=== PATIENT | male | born 1940 | race Caucasian/White ===

== ENCOUNTER 2022-10-17 19:54 | Inpatient (IN) | payer MEDICARE, MEDICAID ==
[~2022-10-17] VITALS: Ht 182.9 cm; Wt 72.7 kg
[~2022-10-17 19:54] MED LIST: FERR325T29
[2022-10-17 22:22] LABS: HEMOGLOBIN 7.4 g/dl (14.0-17.9); MEAN PLATELET VOLUME 6.1 FL (7.4-10.4)
[2022-10-17 22:23] LABS: HEMATOCRIT 22.9 % (42.0-52.0); MEAN CORPUSCULAR HEMOGLOBIN 27.3 PG (27.0-31.0); MEAN CORPUSCULAR HGB CONC 32.3 g/dL (33.0-36.5); MEAN CORPUSCULAR VOLUME 84.5 FL (78-98); PLATELET COUNT 189 X10'3 (140-440); RED BLOOD COUNT 2.71 X10'6 (4.70-6.10); RED CELL DISTRIBUTION WIDTH 17.4 % (11.5-14.5); WHITE BLOOD COUNT 3.1 X10'3 (4.5-11.0)
[2022-10-17 22:37] LABS: CLARITY,URINE CLOUDY (Clear); COLOR,URINE YELLOW (Yellow); GLUCOSE, URINE NEGATIVE (Neg); KETONES,URINE NEGATIVE (Neg); LEUKOCYTE ESTERASE ,URINE LARGE (Neg); NITRITES, URINE POSITIVE (Neg); OCCULT BLOOD,URINE SMALL (Neg); PROTEIN,URINE TRACE mg/dl (Neg); UROBILINOGEN,URINE 0.2 E.U/dL (0.2-1.0)
[2022-10-17 22:44] LABS: ALANINE AMINOTRANSFERASE 10 U/L (12-78); ALBUMIN 1.1 G/DL (3.4-5.0); ALBUMIN/GLOBULIN RATIO 0.2 (1.1-1.5); ALKALINE PHOSPHATASE 58 IU/L (46-116); ANION GAP 1 (8-16); ASPARTATE AMINO TRANSFERASE 51 U/L (10-37); BILIRUBIN,TOTAL 0.3 MG/DL (0.1-1.0); BLOOD UREA NITROGEN 26 MG/DL (7-18); BUN/CREATININE RATIO 25.5 (5.4-32.0); CHLORIDE 103 MMOL/L (99-107); CREATININE 1.02 MG/DL (0.60-1.10); GLUCOSE 123 MG/DL (70-104); SODIUM 140 MMOL/L (135-145); TOTAL CARBON DIOXIDE 35.6 MMOL/L (24-32); TOTAL PROTEIN 8.3 G/DL (6.4-8.2); eGFR 70 ML/MIN
[2022-10-17 22:46] LABS: UA COLLECTION TYPE FOLEY CATH
[2022-10-17 22:50] LABS: CALCIUM 12.6 MG/DL (8.5-10.1); POTASSIUM 2.9 MMOL/L (3.5-5.1)
[2022-10-17 22:53] LABS: WBC,URINE TNTC /HPF (0-4)
[2022-10-17 22:54] LABS: AMORPHOUS URATES 1+; BACTERIA,URINE 2+ /HPF (Neg); RBC,URINE 50-100 /HPF (0-2)
[2022-10-17 22:57] LABS: SQUAMOUS EPITHELIAL CELL,UR FEW /LPF (FEW); TRANSITIONAL EPI CELLS,URINE MODERATE /HPF; URIC ACID CRYSTALS 4+ /HPF (NEGATIVE)
[2022-10-17 22:58] LABS: WBC CLUMPS,URINE FEW /HPF (NEGATIVE)
[2022-10-17 23:28] LABS: ANISOCYTOSIS 1+; PLATELET ESTIMATE NORMAL; TOTAL CELLS COUNTED 100
[2022-10-17 23:29] LABS: ROULEAUX 1+; SMUDGE CELLS 1+
[2022-10-17] MEDS ORDERED: magnesium 2GM in 50ml NS 50 ML IV ONE (23:50)
[2022-10-17] MEDS ORDERED: CefTRIAXone/D5W-Rocephin 1gm 50 ML IV ONE (23:50)
[2022-10-17] MEDS ORDERED: potassium CL 10mEq/100ml bag 100 ML IV SCH (23:50)
[2022-10-17] MEDS ORDERED: dexamethasone sod phosphate 10mg/ml inj IV STA (23:54)
[2022-10-17] MEDS ORDERED: ringers solution, lacted 1,000 ML IV ONE (23:55)
[2022-10-17] MEDS ORDERED: REMDESIVIR INJ 200 MG in normal saline 100ml IV soln 100 ML IV ONE (23:55)
[2022-10-18] MEDS ORDERED: acetaminophen 1,000mg/100ml IV 100 ML IV ONE
[2022-10-18] MEDS ORDERED: Potassium Cl inj 20 MEQ in normal saline 250ml IV soln 250 ML IV ONE (00:05)
[2022-10-18] MEDS: normal saline 1000ml 1,000 ML IV SCH ×5 (00:22→22:26)
--- NOTE | 2022-10-18 01:15 | NUR ---
linens and brief changed, one sm. bowel movement. pt could not assist in rolling. 3person assist.
[2022-10-18] MEDS ORDERED: mag hydrox/Alum hydrox/simeth 30ml oral suspension PO PRN (01:20)
[2022-10-18] MEDS ORDERED: magnesium hydroxide 30ml (MOM) UD suspension PO PRN (01:20)
[2022-10-18] MEDS ORDERED: magnesium 4gm in 100ml NS 100 ML IV PRN (01:20)
[2022-10-18] MEDS ORDERED: acetaminophen 325mg tablet PO PRN (01:20)
[2022-10-18] MEDS ORDERED: ondansetron/PF 4mg/2ml inj IV PRN (01:20)
[2022-10-18] MEDS ORDERED: magnesium Cl slow-release 64mg tablet PO PRN (01:20)
[2022-10-18] MEDS ORDERED: potassium Cl 40MEQ/1/2NS 520ml 520 ML IV PRN (01:20)
[2022-10-18 02:09] LABS: MAGNESIUM 1.5 MG/DL (1.5-2.4)
[2022-10-18] MEDS ORDERED: pamidronate disodium inj 90 MG in normal saline 500ml IV soln 500 ML IV ONE (02:20)
--- NOTE | 2022-10-18 04:32 | NUR ---
pt asking for water, but does not answer simple questions such as whether he has any pain.
--- NOTE | 2022-10-18 06:44 | NUR ---
Spoke with Dr Lacy to clarify orders for Lasix as pts potassium was 3.0 before replacement with 20 mEq during applications intern and pts last BP was 98/52. stated he wants to continue with the lasix at this time but that this RN should give a 250 cc bolus of NS as the BP is below 100 as well as continue to give NS at 150 mL/hr.
[2022-10-18] MEDS: CefTRIAXone/D5W-Rocephin 1gm 50 ML IV SCH (07:56)
[2022-10-18] MEDS: docusate sod 100mg capsule PO SCH ×2 (07:59→20:05)
[2022-10-18] MEDS ORDERED: furosemide 10 MG/1 ML 10ml inj IV SCH (08:00)
[2022-10-18] MEDS ORDERED: NORMAL SALINE IV SCH (08:00)
[2022-10-18] MEDS ORDERED: DEXAMETHASONE IV SCH (08:00)
[2022-10-18] MEDS: K and/or MAG REPLACEMENT MC SCH ×2 (08:00→20:09)
[2022-10-18] MEDS: heparin, porcine 5000 units/ml vial SQ SCH ×2 (08:01→20:05)
[2022-10-18] MEDS ORDERED: normal saline 500ml IV soln 500 ML IV ONE (08:20)
--- NOTE | 2022-10-18 08:27 | NUR ---
Pt very weak, able to swallow water and PO meds without difficulty. Ate a few bites of oatmeal for breakfast. He understands he is not at home but does not answer when asked where he is. Pt seems alert but exhausted.
--- NOTE | 2022-10-18 08:57 | NUR ---
Received phone call from pt's , provided updates on pt condition.
[2022-10-18 09:05] LABS: ALANINE AMINOTRANSFERASE 13 U/L (12-78); ALBUMIN 1.1 G/DL (3.4-5.0); ALBUMIN/GLOBULIN RATIO 0.2 (1.1-1.5); ALKALINE PHOSPHATASE 53 IU/L (46-116); ANION GAP 0 (8-16); ASPARTATE AMINO TRANSFERASE 54 U/L (10-37); BILIRUBIN,TOTAL 0.2 MG/DL (0.1-1.0); BLOOD UREA NITROGEN 26 MG/DL (7-18); BUN/CREATININE RATIO 24.5 (5.4-32.0); CALCIUM 11.6 MG/DL (8.5-10.1); CHLORIDE 105 MMOL/L (99-107); CREATININE 1.06 MG/DL (0.60-1.10); GLUCOSE 184 MG/DL (70-104); PHOSPHORUS 3.1 MG/DL (2.3-4.5); POTASSIUM 3.2 MMOL/L (3.5-5.1); SODIUM 141 MMOL/L (135-145); TOTAL CARBON DIOXIDE 35.6 MMOL/L (24-32); TOTAL PROTEIN 7.8 G/DL (6.4-8.2); eGFR 67 ML/MIN
[2022-10-18 09:28] LABS: ALANINE AMINOTRANSFERASE 15 U/L (12-78); ALBUMIN 1.1 G/DL (3.4-5.0); ALBUMIN/GLOBULIN RATIO 0.2 (1.1-1.5); ALKALINE PHOSPHATASE 50 IU/L (46-116); ANION GAP 0 (8-16); ASPARTATE AMINO TRANSFERASE 49 U/L (10-37); BILIRUBIN,TOTAL 0.2 MG/DL (0.1-1.0); BLOOD UREA NITROGEN 27 MG/DL (7-18); BUN/CREATININE RATIO 25.5 (5.4-32.0); CALCIUM 11.5 MG/DL (8.5-10.1); CHLORIDE 105 MMOL/L (99-107); CREATININE 1.06 MG/DL (0.60-1.10); GLUCOSE 213 MG/DL (70-104); POTASSIUM 3.2 MMOL/L (3.5-5.1); SODIUM 140 MMOL/L (135-145); TOTAL CARBON DIOXIDE 34.9 MMOL/L (24-32); TOTAL PROTEIN 7.7 G/DL (6.4-8.2); eGFR 67 ML/MIN
--- NOTE | 2022-10-18 10:50 | NUR ---
ED BED 11-Pt has received 40 of Lasix BP 94/44. Currently recieving NS at 150. Would you like a bolus? [id number] page sent to Dr. Carias
--- NOTE | 2022-10-18 10:55 | NUR ---
received orders for 250 cc bolus of NS from Dr. Carias
[2022-10-18] MEDS ORDERED: normal saline 500ml IV soln 500 ML IV STA (10:56)
--- NOTE | 2022-10-18 11:35 | NUR ---
BP 117/53 after 250 cc bolus
[2022-10-18] MEDS: HYDROcodone/acetaminophen 10/325mg tab PO PRN (13:24)
--- NOTE | 2022-10-18 15:06 | NUR ---
pts called for updates. Update provided. Pts upset that she cannot visit due to hospitals COVID visitor policy.
[2022-10-18] MEDS ORDERED: CHOL20004 PO (15:21)
[2022-10-18] MEDS ORDERED: BISA10SU60 RC (15:22)
[2022-10-18] MEDS ORDERED: DOCU100C40 PO (15:22)
[2022-10-18] MEDS ORDERED: NA P133E4 RC (15:23)
[2022-10-18] MEDS ORDERED: LEVO-65 PO (15:24)
[2022-10-18] MEDS ORDERED: LIDO700A32 TOP (15:25)
[2022-10-18] MEDS ORDERED: MULT-227 PO (15:26)
[2022-10-18] MEDS ORDERED: MAGN400O6 PO (15:26)
[2022-10-18] MEDS ORDERED: NIRM1TAB PO (15:27)
[2022-10-18] MEDS ORDERED: POTA-206 PO (15:28)
[2022-10-18] MEDS ORDERED: POLY1DRO2 OP (15:28)
[2022-10-18] MEDS ORDERED: SENN-263 PO (15:29)
[2022-10-18] MEDS ORDERED: TRAM50TA2 PO (15:30)
[2022-10-18] MEDS ORDERED: ACET325T58 PO (15:31)
[2022-10-18] MEDS ORDERED: ASCO500C18 PO (15:31)
[2022-10-18] MEDS ORDERED: ONDA4TAB12 PO (15:32)
--- NOTE | 2022-10-18 15:51 | NUR ---
pt checked for incontinence and repositioned. No bowel movement at this time.
--- NOTE | 2022-10-18 17:30 | NUR ---
SPENT APPROX 20 MINUTES ON THE PHONE WITH PT'S DISCUSSING HER CONCERNS REGARDING PT BEING DC BEFORE SHE IS READY FOR HIM TO COME HOME. WANTS PT TO BE COVID NEG SO THAT SHE CAN HAVE A HOME HEALTH WORKER BEABLE TO COME TO HER HOME FOR ASSISTANCE.
--- NOTE | 2022-10-18 19:23 | NUR ---
Phoned Dr Marie to discuss POC and we reviewed labs, will redraw CMP, ordered placed.
[2022-10-18 19:58] LABS: ALBUMIN 1.1 G/DL (3.4-5.0); ALBUMIN/GLOBULIN RATIO 0.2 (1.1-1.5); ALKALINE PHOSPHATASE 55 IU/L (46-116); ANION GAP 2 (8-16); ASPARTATE AMINO TRANSFERASE 46 U/L (10-37); BILIRUBIN,TOTAL 0.2 MG/DL (0.1-1.0); BLOOD UREA NITROGEN 31 MG/DL (7-18); BUN/CREATININE RATIO 31.3 (5.4-32.0); CALCIUM 11.8 MG/DL (8.5-10.1); CHLORIDE 107 MMOL/L (99-107); CREATININE 0.99 MG/DL (0.60-1.10); GLUCOSE 151 MG/DL (70-104); POTASSIUM 3.1 MMOL/L (3.5-5.1); SODIUM 144 MMOL/L (135-145); TOTAL CARBON DIOXIDE 34.7 MMOL/L (24-32); eGFR 73 ML/MIN
[2022-10-18] MEDS: dexamethasone inj 6 MG in normal saline 50ml IV soln 50 ML IV SCH (20:05)
[2022-10-18] MEDS: furosemide 40mg/4ml inj IV SCH (20:05)
[2022-10-18] MEDS: potassium Cl 20 mEq SR tablet PO PRN (20:08)
[2022-10-18 20:13] LABS: ALANINE AMINOTRANSFERASE 14 U/L (12-78)
--- NOTE | 2022-10-18 21:27 | NUR ---
Patient in room ED 11. I have received report from SHARRI Payne and had the opportunity to ask questions and assume patient care.
[2022-10-18 22:00] VITALS: BP 128/59
[2022-10-19] VITALS (15 sets, daily range): BP systolic 126–179; BP diastolic 63–101
[2022-10-19] MEDS: potassium Cl 20 mEq SR tablet PO PRN ×4 (00:04→16:35)
--- NOTE | 2022-10-19 00:19 | NUR ---
Pt. HR drop to 30-40.Dr. Marie is aware.He came and saw the pt. and gave me a order to hold his Remdesevir.We will continue to care for pt.
[2022-10-19] MEDS: normal saline 1000ml 1,000 ML IV SCH ×2 (05:45→17:20)
--- NOTE | 2022-10-19 06:25 | NUR ---
Problems reprioritized. Patient report given, questions answered & plan of care reviewed with SHARRI Perrin.
[2022-10-19 07:09] LABS: BASOPHILS % (AUTO) 0.1 % (0-1); EOSINOPHILS % (AUTO) 0 % (0-6); LYMPHOCYTES # (AUTO) 0.4 X10'3 (1.1-4.8); LYMPHOCYTES % (AUTO) 10.1 % (21-51); MEAN CORPUSCULAR HEMOGLOBIN 27.5 PG (27.0-31.0); MEAN CORPUSCULAR HGB CONC 32.5 g/dL (33.0-36.5); MEAN CORPUSCULAR VOLUME 84.5 FL (78-98); MEAN PLATELET VOLUME 6.7 FL (7.4-10.4); MONOCYTES # (AUTO) 0.1 X10'3 (0-0.9); MONOCYTES % (AUTO) 2.1 % (2-12); NEUTROPHILS # (AUTO) 3.8 X10'3 (1.8-7.7); NEUTROPHILS % (AUTO) 87.7 % (42-75); PLATELET COUNT 185 X10'3 (140-440); WHITE BLOOD COUNT 4.3 X10'3 (4.5-11.0)
[2022-10-19 07:15] LABS: HEMATOCRIT 19.4 % (42.0-52.0); HEMOGLOBIN 6.3 g/dl (14.0-17.9)
--- NOTE | 2022-10-19 07:17 | NUR ---
Marychuy, surg [id number] Cris Gupta 341... H&H 6.3/19.4, do you want to order blood? Addendum: 10/19/22 at 0718 by Marychuy Jasso RN RN message sent to Dr Carias @ [phone]
[2022-10-19 07:21] LABS: ALANINE AMINOTRANSFERASE 10 U/L (12-78); ALBUMIN 1.1 G/DL (3.4-5.0); ALBUMIN/GLOBULIN RATIO 0.2 (1.1-1.5); ALKALINE PHOSPHATASE 49 IU/L (46-116); ANION GAP 0 (8-16); ASPARTATE AMINO TRANSFERASE 51 U/L (10-37); BILIRUBIN,TOTAL 0.1 MG/DL (0.1-1.0); BLOOD UREA NITROGEN 39 MG/DL (7-18); CALCIUM 10.5 MG/DL (8.5-10.1); CHLORIDE 108 MMOL/L (99-107); GLUCOSE 156 MG/DL (70-104); MAGNESIUM 1.6 MG/DL (1.5-2.4); POTASSIUM 3.4 MMOL/L (3.5-5.1); SODIUM 143 MMOL/L (135-145); TOTAL CARBON DIOXIDE 34.7 MMOL/L (24-32); TOTAL PROTEIN 7.7 G/DL (6.4-8.2); eGFR 72 ML/MIN
[2022-10-19] MEDS: heparin, porcine 5000 units/ml vial SQ SCH ×2 (08:00→20:12)
[2022-10-19] MEDS: K and/or MAG REPLACEMENT MC SCH ×2 (08:00→20:00)
[2022-10-19] MEDS: docusate sod 100mg capsule PO SCH ×2 (08:00→20:13)
[2022-10-19] MEDS: furosemide 40mg/4ml inj IV SCH ×2 (08:00→20:13)
[2022-10-19] MEDS: dexamethasone inj 6 MG in normal saline 50ml IV soln 50 ML IV SCH (08:00)
[2022-10-19] MEDS: CefTRIAXone/D5W-Rocephin 1gm 50 ML IV SCH (08:46)
--- NOTE | 2022-10-19 09:00 | NUR ---
Ria agrees to blood transfusion due to pts Hgb/Hct being 6.3 and 19.4. He is too confused to concent self. 2 RN's signature for wifes decision on consent documented. Dr Carias ordered by phone 2 units of blood with wifes consent.
--- NOTE | 2022-10-19 10:51 | NUR ---
Dr Carias Notified, mrsa in urine culture from reyes PAGER ID: [phone] MESSAGE: Marychuy, surg 2959 Cris Gupta 341 FYI: MRSA in reyes/Urine culture.
--- NOTE | 2022-10-19 11:21 | NUR ---
Per lauro Rosen to hold AM dose of heparin
--- NOTE | 2022-10-19 11:44 | NUR ---
Noted pt with a low Devang of 11. Wound care has been consulted for open area to bilat buttocks. Will make recommendations as appropriate pending wound care assessment and trends in PO intake. Addendum: 10/19/22 at [address] Amended: Links added.
[2022-10-19 15:22] LABS: OCCULT BLOOD STOOL NEGATIVE (Neg)
--- NOTE | 2022-10-19 18:00 | NUR ---
Patient in room [facility] 341. I have received report from SHARRI Perrin and had the opportunity to ask questions and assume patient care.
--- NOTE | 2022-10-19 18:21 | NUR ---
Report given back to Tatiana HARRELL, all questions answered at this time. Pt resting comfortably in bed.
--- NOTE | 2022-10-19 19:00 | NUR ---
Pt. called to check on pt.She requested to be notified of any new medication be given to pt. She did not wanted Decadron and Remdesivir to be given.Hospitalist is notified and gave me a order to discontinue the order,We will continue with pt. care.
[2022-10-20] MEDS: normal saline 1000ml 1,000 ML IV SCH ×4 (00:07→19:28)
[2022-10-20 02:00] VITALS: BP 156/54
--- NOTE | 2022-10-20 06:24 | NUR ---
Problems reprioritized. Patient report given, questions answered & plan of care reviewed with SHARRI Deal.
--- NOTE | 2022-10-20 06:46 | NUR ---
Patient in room [facility] 341. I have received report from Nicole HARRELL and had the opportunity to ask questions and assume patient care.
[2022-10-20 06:47] VITALS: BP 127/96
[2022-10-20 07:09] LABS: BASOPHILS % (AUTO) 0.1 % (0-1); EOSINOPHILS % (AUTO) 0 % (0-6); HEMOGLOBIN 8.6 g/dl (14.0-17.9); LYMPHOCYTES # (AUTO) 0.5 X10'3 (1.1-4.8); LYMPHOCYTES % (AUTO) 9.3 % (21-51); MEAN CORPUSCULAR HEMOGLOBIN 27.4 PG (27.0-31.0); MEAN CORPUSCULAR HGB CONC 32.9 g/dL (33.0-36.5); MEAN CORPUSCULAR VOLUME 83.3 FL (78-98); MEAN PLATELET VOLUME 6.7 FL (7.4-10.4); MONOCYTES # (AUTO) 0.1 X10'3 (0-0.9); MONOCYTES % (AUTO) 2.4 % (2-12); NEUTROPHILS # (AUTO) 4.4 X10'3 (1.8-7.7); NEUTROPHILS % (AUTO) 88.2 % (42-75); PLATELET COUNT 189 X10'3 (140-440); RED BLOOD COUNT 3.12 X10'6 (4.70-6.10); RED CELL DISTRIBUTION WIDTH 16.9 % (11.5-14.5); WHITE BLOOD COUNT 4.9 X10'3 (4.5-11.0)
[2022-10-20 07:34] LABS: ALANINE AMINOTRANSFERASE 19 U/L (12-78); ALBUMIN 1.2 G/DL (3.4-5.0); ALBUMIN/GLOBULIN RATIO 0.2 (1.1-1.5); ALKALINE PHOSPHATASE 50 IU/L (46-116); ANION GAP 3 (8-16); ASPARTATE AMINO TRANSFERASE 70 U/L (10-37); BILIRUBIN,TOTAL 0.4 MG/DL (0.1-1.0); BLOOD UREA NITROGEN 45 MG/DL (7-18); CALCIUM 9.4 MG/DL (8.5-10.1); CHLORIDE 111 MMOL/L (99-107); GLUCOSE 106 MG/DL (70-104); MAGNESIUM 1.6 MG/DL (1.5-2.4); SODIUM 147 MMOL/L (135-145); TOTAL PROTEIN 7.4 G/DL (6.4-8.2); eGFR 81 ML/MIN
[2022-10-20 07:37] LABS: POTASSIUM 2.6 MMOL/L (3.5-5.1)
[2022-10-20] MEDS: K and/or MAG REPLACEMENT MC SCH ×2 (07:55→20:00)
[2022-10-20] MEDS: CefTRIAXone/D5W-Rocephin 1gm 50 ML IV SCH (08:33)
[2022-10-20] MEDS: docusate sod 100mg capsule PO SCH ×2 (08:33→18:53)
[2022-10-20] MEDS: furosemide 40mg/4ml inj IV SCH (08:33)
[2022-10-20] MEDS: heparin, porcine 5000 units/ml vial SQ SCH ×2 (08:34→19:01)
[2022-10-20] MEDS: potassium Cl 20 mEq SR tablet PO PRN ×4 (08:34→23:18)
[2022-10-20 14:00] LABS: IMMUNOGLOBULIN A, QN, SERUM 71 mg/dL (61-437); IMMUNOGLOBULIN G, QN, SERUM 4644 mg/dL (603-1613); IMMUNOGLOBULIN M, QN, SERUM 43 mg/dL (15-143)
[2022-10-20 18:00] VITALS: BP 115/67
--- NOTE | 2022-10-20 18:29 | NUR ---
Problems reprioritized. Patient report given, questions answered & plan of care reviewed with Isidra HARRELL.
[2022-10-20] MEDS: HYDROcodone/acetaminophen 10/325mg tab PO PRN (18:53)
[2022-10-20] MEDS: vancomycin/NS 1 GM ADD-VANTAGE 250 ML IV SCH (19:26)
--- NOTE | 2022-10-20 19:59 | NUR ---
Reviewed pt labs with NA at 147. Page to MD Carlos regarding pt receiving IV fluids NS @150ml/hr. Received new orders to change IV fluids to 1/2NS @100ml/hr.
--- NOTE | 2022-10-20 20:40 | NUR ---
Spoke with regarding patient current status. Updated that patient ate dinner with assistance, he has been repositioned and is resting comfortably. All other questions and concerns were addressed to the best of my ability.
[2022-10-20] MEDS: sodium chloride 0.45% 1,000 ML IV SCH (21:44)
[2022-10-20 22:00] VITALS: BP 168/79
[2022-10-21] MEDS: HYDROcodone/acetaminophen 10/325mg tab PO PRN ×2 (01:24→20:38)
[2022-10-21] MEDS ORDERED: potassium Cl 40MEQ/1/2NS 520ml 520 ML IV PRN (03:45)
[2022-10-21] MEDS ORDERED: potassium Cl 20 mEq SR tablet PO PRN (03:45)
[2022-10-21] MEDS ORDERED: magnesium 4gm in 100ml NS 100 ML IV PRN (03:45)
[2022-10-21] MEDS: potassium Cl 20 mEq SR tablet PO PRN ×4 (04:03→19:53)
[2022-10-21 06:00] LABS: BASOPHILS % (AUTO) 0 % (0-1); EOSINOPHILS % (AUTO) 0.8 % (0-6); HEMATOCRIT 24.8 % (42.0-52.0); HEMOGLOBIN 8.1 g/dl (14.0-17.9); LYMPHOCYTES # (AUTO) 0.5 X10'3 (1.1-4.8); LYMPHOCYTES % (AUTO) 11.8 % (21-51); MEAN CORPUSCULAR HEMOGLOBIN 27.2 PG (27.0-31.0); MEAN CORPUSCULAR HGB CONC 32.7 g/dL (33.0-36.5); MEAN CORPUSCULAR VOLUME 83.1 FL (78-98); MEAN PLATELET VOLUME 7.1 FL (7.4-10.4); MONOCYTES # (AUTO) 0.1 X10'3 (0-0.9); MONOCYTES % (AUTO) 2.5 % (2-12); NEUTROPHILS # (AUTO) 3.3 X10'3 (1.8-7.7); NEUTROPHILS % (AUTO) 84.9 % (42-75); PLATELET COUNT 178 X10'3 (140-440); RED BLOOD COUNT 2.98 X10'6 (4.70-6.10); RED CELL DISTRIBUTION WIDTH 17.3 % (11.5-14.5); WHITE BLOOD COUNT 3.9 X10'3 (4.5-11.0)
--- NOTE | 2022-10-21 06:20 | NUR ---
Patient in room [facility] 341. I have received report from Isidra HARRELL and had the opportunity to ask questions and assume patient care.
[2022-10-21 06:32] LABS: ALANINE AMINOTRANSFERASE 94 U/L (12-78); ALBUMIN 1.1 G/DL (3.4-5.0); ALBUMIN/GLOBULIN RATIO 0.2 (1.1-1.5); ALKALINE PHOSPHATASE 60 IU/L (46-116); ANION GAP 1 (8-16); ASPARTATE AMINO TRANSFERASE 158 U/L (10-37); BILIRUBIN,TOTAL 0.4 MG/DL (0.1-1.0); BLOOD UREA NITROGEN 36 MG/DL (7-18); BUN/CREATININE RATIO 47.4 (5.4-32.0); CALCIUM 8.7 MG/DL (8.5-10.1); CHLORIDE 111 MMOL/L (99-107); CREATININE 0.76 MG/DL (0.60-1.10); GLUCOSE 87 MG/DL (70-104); MAGNESIUM 1.5 MG/DL (1.5-2.4); POTASSIUM 3.2 MMOL/L (3.5-5.1); SODIUM 144 MMOL/L (135-145); TOTAL PROTEIN 6.9 G/DL (6.4-8.2); eGFR > 90 ML/MIN
[2022-10-21] MEDS: K and/or MAG REPLACEMENT MC SCH ×2 (06:45→19:47)
[2022-10-21 06:54] VITALS: BP 149/77
[2022-10-21] MEDS: sodium chloride 0.45% 1,000 ML IV SCH ×2 (07:45→16:34)
[2022-10-21] MEDS: heparin, porcine 5000 units/ml vial SQ SCH ×2 (07:45→19:52)
[2022-10-21] MEDS: docusate sod 100mg capsule PO SCH ×2 (07:45→19:52)
[2022-10-21] MEDS: vancomycin/NS 1 GM ADD-VANTAGE 250 ML IV SCH ×2 (07:47→19:52)
[2022-10-21 08:40] LABS: % FREE PSA 36.3 % (.); PSA, FREE 1.49 ng/mL
[2022-10-21 11:01] VITALS: BP 126/63
[2022-10-21] MEDS ORDERED: ondansetron 4mg rapidly disintigrating tab PO PRN (13:15)
[2022-10-21] MEDS ORDERED: magnesium hydroxide 30ml (MOM) UD suspension PO PRN (13:15)
[2022-10-21] MEDS ORDERED: POLYVINYL ALCOHOL OP PRN (13:27)
[2022-10-21] MEDS ORDERED: POVIDONE OP PRN (13:27)
[2022-10-21] MEDS: LIDOcaine 5% patch TP SCH (13:50)
--- NOTE | 2022-10-21 15:36 | NUR ---
PRESSURE ULCER EDUCATION: DEFINITION: A pressure ulcer is an area of skin that breaks down when you stay in one position too long. The constant pressure against the skin reduces the blood flow to that area and the affected tissue dies. CAUSES: "Being bedridden or in a wheelchair "Fragile skin "Having a chronic condition, such as diabetes or vascular disease "Inability to move certain parts of your body without assistance "Older age "Incontinence of urine or stool SYMPTOMS: "A reddened area that DOES NOT turn white when pressed on - this can be the beginning of a pressure ulcer "A blister, deep sore or a crater - these can be advanced pressure ulcers FIRST AID: "Relieve the pressure on this area "Keep the area clean and dry "Call your primary doctor if you see any of the above symptoms "DO NOT massage the area "DO NOT use a donut shaped or ring shaped pillow- these actually interfere with the blood flow and cause complications PREVENTION: "Check for pressure ulcers everyday "Change position at least every two hours to relieve pressure "Use items that help relieve pressure- pillows, sheepskin, foam padding, and powders. "Keep skin clean and dry "Eat healthy well balanced meals "Exercise daily IF YOU SEE ANY OF THESE SYMPTOMS WHILE IN THE HOSPITAL - TELL YOUR NURSE IMMEDIATELY. IF YOU SEE ANY OF THESE SYMPTOMS WHILE AT HOME OR HAVE ANY QUESTIONS OR CONCERNS ABOUT PRESSURE ULCERS - CALL YOUR PRIMARY DOCTOR IMMEDIATELY. Addendum: 10/21/22 at 1536 by Bhumi Dasilva LVN Amended: Links added.
[2022-10-21 18:00] VITALS: BP 129/90
--- NOTE | 2022-10-21 18:19 | NUR ---
Problems reprioritized. Patient report given, questions answered & plan of care reviewed with Isidra HARRELL.
[2022-10-21] MEDS: RITONAVIR PO SCH (19:48)
[2022-10-21] MEDS: NIRMATRELVIR PO SCH (19:48)
[2022-10-21] MEDS: ferrous sulfate 325mg tablet PO SCH (19:52)
[2022-10-21] MEDS: sennosides 8.6mg tablet PO SCH (19:52)
[2022-10-21] MEDS: ascorbic acid 500mg tablet PO SCH (19:52)
[2022-10-21] MEDS ORDERED: docusate sod 100mg capsule PO SCH (20:00)
[2022-10-21 22:00] VITALS: BP 142/79
[2022-10-22] MEDS: sodium chloride 0.45% 1,000 ML IV SCH ×3 (02:00→21:53)
[2022-10-22 06:00] VITALS: BP 148/89
[2022-10-22] MEDS ORDERED: VANCOMYCIN LEVEL IV ONE (06:30)
--- NOTE | 2022-10-22 06:58 | NUR ---
Patient in room [facility] 341. I have received report from SHARRI Miner and had the opportunity to ask questions and assume patient care.
[2022-10-22 07:30] LABS: BASOPHILS % (AUTO) 0.4 % (0-1); HEMATOCRIT 26.4 % (42.0-52.0); HEMOGLOBIN 8.6 g/dl (14.0-17.9); LYMPHOCYTES # (AUTO) 0.6 X10'3 (1.1-4.8); LYMPHOCYTES % (AUTO) 19.1 % (21-51); MEAN CORPUSCULAR HEMOGLOBIN 27.1 PG (27.0-31.0); MEAN CORPUSCULAR HGB CONC 32.4 g/dL (33.0-36.5); MEAN CORPUSCULAR VOLUME 83.7 FL (78-98); MEAN PLATELET VOLUME 6.8 FL (7.4-10.4); MONOCYTES # (AUTO) 0.1 X10'3 (0-0.9); NEUTROPHILS # (AUTO) 2.5 X10'3 (1.8-7.7); NEUTROPHILS % (AUTO) 76.5 % (42-75); PLATELET COUNT 187 X10'3 (140-440); RED BLOOD COUNT 3.16 X10'6 (4.70-6.10); WHITE BLOOD COUNT 3.3 X10'3 (4.5-11.0)
[2022-10-22 07:46] LABS: ALANINE AMINOTRANSFERASE 77 U/L (12-78); ALBUMIN 1.1 G/DL (3.4-5.0); ALBUMIN/GLOBULIN RATIO 0.2 (1.1-1.5); ALKALINE PHOSPHATASE 65 IU/L (46-116); ANION GAP 1 (8-16); ASPARTATE AMINO TRANSFERASE 130 U/L (10-37); BILIRUBIN,TOTAL 0.4 MG/DL (0.1-1.0); BLOOD UREA NITROGEN 22 MG/DL (7-18); BUN/CREATININE RATIO 27.2 (5.4-32.0); CALCIUM 8.2 MG/DL (8.5-10.1); CHLORIDE 109 MMOL/L (99-107); CREATININE 0.81 MG/DL (0.60-1.10); GLUCOSE 87 MG/DL (70-104); MAGNESIUM 1.4 MG/DL (1.5-2.4); POTASSIUM 3.3 MMOL/L (3.5-5.1); SODIUM 141 MMOL/L (135-145); VANCOMYCIN,TROUGH 17.1 UG/ML (6.0-14.0); eGFR > 90 ML/MIN
[2022-10-22] MEDS: NIRMATRELVIR PO SCH (08:00)
[2022-10-22] MEDS: RITONAVIR PO SCH (08:00)
[2022-10-22] MEDS: K and/or MAG REPLACEMENT MC SCH ×2 (08:00→19:11)
[2022-10-22] MEDS: docusate sod 100mg capsule PO SCH ×2 (08:00→20:00)
[2022-10-22] MEDS: ferrous sulfate 325mg tablet PO SCH ×3 (09:01→21:53)
[2022-10-22] MEDS: multivitamins, therapeutics tablet PO SCH (09:01)
[2022-10-22] MEDS: ascorbic acid 500mg tablet PO SCH ×2 (09:02→20:00)
[2022-10-22] MEDS: heparin, porcine 5000 units/ml vial SQ SCH ×2 (09:03→20:00)
[2022-10-22] MEDS: LIDOcaine 5% patch TP SCH (09:04)
[2022-10-22] MEDS: vancomycin/NS 1 GM ADD-VANTAGE 250 ML IV SCH ×2 (09:05→19:00)
[2022-10-22 10:00] VITALS: BP 26/56
--- NOTE | 2022-10-22 10:03 | NUR ---
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 Pt PO significantly improved from initial 0-25% heart healthy meals now to ~84% avg meals consistently consuming 100% protein. Overall partially meeting estimated needs given pt stature and DX; double protein TIDWM added to assist meeting needs given good intake dietary notified. MAGDY paged MD regarding liberalizing to regular diet given no cardiac hx in EMR, pt receiving IV NS at 100ml/hr, and advanced age. Devang 11 w/ unstageable PI to coccyx though no open wound per WOC note. LBM 10/19 receiving routine senna HS and refused colace per EMR. Will monitor for further nutrition intervention needs this admit. Rec: 1. liberalize to regular diet; heart healthy diet no indicated as no cardiac hx, advanced age, and receiving IV NS at 100ml/hr 2. double protein TIDWM to assist meeting needs 3. routine bowel care 4. scaled wt this admit; subsequent weekly wts Addendum: 10/22/22 at [address] Amended: Links added.
--- NOTE | 2022-10-22 11:21 | NUR ---
I have reviewed and agree with all interventions, assessments performed and documented by RONALD TEE.
[2022-10-22] MEDS ORDERED: polyvinyl alcohol ophthalmic drops 15ml bottle EACHEYE PRN (12:41)
[2022-10-22] MEDS: HYDROcodone/acetaminophen 10/325mg tab PO PRN (17:31)
--- NOTE | 2022-10-22 17:50 | NUR ---
PATIENT ON BARBER NOT SPECIALITY BED Addendum: 10/22/22 at 1752 by Qing Woody RN Amended: Links added.
[2022-10-22 18:00] VITALS: BP 165/89
--- NOTE | 2022-10-22 18:47 | NUR ---
Problems reprioritized. Patient report given, questions answered & plan of care reviewed with SHARRI Coronel.
[2022-10-22] MEDS: potassium Cl 20 mEq SR tablet PO PRN (20:00)
[2022-10-22] MEDS: sennosides 8.6mg tablet PO SCH (21:53)
[2022-10-23] MEDS: potassium Cl 20 mEq SR tablet PO PRN ×2 (04:10)
[2022-10-23 06:00] VITALS: BP 158/79
[2022-10-23 06:03] LABS: BASOPHILS % (AUTO) 0.3 % (0-1); EOSINOPHILS # (AUTO) 0.1 X10'3 (0-0.9); EOSINOPHILS % (AUTO) 1.5 % (0-6); HEMATOCRIT 25.1 % (42.0-52.0); HEMOGLOBIN 8.4 g/dl (14.0-17.9); LYMPHOCYTES # (AUTO) 0.7 X10'3 (1.1-4.8); LYMPHOCYTES % (AUTO) 21.4 % (21-51); MEAN CORPUSCULAR HEMOGLOBIN 27.7 PG (27.0-31.0); MEAN CORPUSCULAR HGB CONC 33.6 g/dL (33.0-36.5); MEAN CORPUSCULAR VOLUME 82.5 FL (78-98); MEAN PLATELET VOLUME 6.6 FL (7.4-10.4); MONOCYTES # (AUTO) 0.2 X10'3 (0-0.9); MONOCYTES % (AUTO) 5.2 % (2-12); NEUTROPHILS # (AUTO) 2.5 X10'3 (1.8-7.7); NEUTROPHILS % (AUTO) 71.6 % (42-75); PLATELET COUNT 179 X10'3 (140-440); RED BLOOD COUNT 3.04 X10'6 (4.70-6.10); RED CELL DISTRIBUTION WIDTH 16.9 % (11.5-14.5); WHITE BLOOD COUNT 3.5 X10'3 (4.5-11.0)
[2022-10-23 06:09] LABS: ALANINE AMINOTRANSFERASE 59 U/L (12-78); ALBUMIN/GLOBULIN RATIO 0.2 (1.1-1.5); ALKALINE PHOSPHATASE 64 IU/L (46-116); ANION GAP 3 (8-16); ASPARTATE AMINO TRANSFERASE 107 U/L (10-37); BILIRUBIN,TOTAL 0.4 MG/DL (0.1-1.0); BLOOD UREA NITROGEN 18 MG/DL (7-18); BUN/CREATININE RATIO 26.9 (5.4-32.0); CALCIUM 8.2 MG/DL (8.5-10.1); CHLORIDE 109 MMOL/L (99-107); CREATININE 0.67 MG/DL (0.60-1.10); GLUCOSE 88 MG/DL (70-104); POTASSIUM 3.5 MMOL/L (3.5-5.1); SODIUM 139 MMOL/L (135-145); TOTAL CARBON DIOXIDE 27.1 MMOL/L (24-32); TOTAL PROTEIN 6.5 G/DL (6.4-8.2); eGFR > 90 ML/MIN
[2022-10-23] MEDS: ascorbic acid 500mg tablet PO SCH ×2 (08:00→19:45)
[2022-10-23] MEDS: LIDOcaine 5% patch TP SCH (08:00)
[2022-10-23] MEDS: K and/or MAG REPLACEMENT MC SCH ×2 (08:00→20:00)
[2022-10-23] MEDS: vancomycin/NS 1 GM ADD-VANTAGE 250 ML IV SCH ×2 (09:30→19:44)
[2022-10-23] MEDS: ferrous sulfate 325mg tablet PO SCH ×3 (09:32→19:45)
[2022-10-23] MEDS: docusate sod 100mg capsule PO SCH ×2 (09:32→19:45)
[2022-10-23] MEDS: multivitamins, therapeutics tablet PO SCH (09:33)
[2022-10-23] MEDS: heparin, porcine 5000 units/ml vial SQ SCH ×2 (09:33→19:45)
[2022-10-23] MEDS: sodium chloride 0.45% 1,000 ML IV SCH ×2 (09:39→18:00)
--- NOTE | 2022-10-23 17:45 | NUR ---
notified md for chronic reyes order. waiting for hospital equipment to be delivered to house. patient going home on pallative care per wifes request. patient has decreased appetite and is a feed. patient will sometimes allow us to turn. patient is a two person assist. I spoke with wound care nurse about patients bottom. put meplex
[2022-10-23 18:00] VITALS: BP 148/92
--- NOTE | 2022-10-23 18:25 | NUR ---
Patient in room [facility] 341. I have received report from SHARRI Henriquez and had the opportunity to ask questions and assume patient care.
[2022-10-23] MEDS: sennosides 8.6mg tablet PO SCH (19:45)
[2022-10-23] MEDS: magnesium Cl slow-release 64mg tablet PO PRN (19:46)
[2022-10-23 22:00] VITALS: BP 170/83
[2022-10-24] MEDS: magnesium Cl slow-release 64mg tablet PO PRN (03:41)
[2022-10-24] MEDS: sodium chloride 0.45% 1,000 ML IV SCH ×2 (04:00→12:11)
[2022-10-24 06:00] VITALS: BP 140/75
--- NOTE | 2022-10-24 06:20 | NUR ---
Patient in room [facility] 341. I have received report from brigida aldridge and had the opportunity to ask questions and assume patient care.
--- NOTE | 2022-10-24 06:31 | NUR ---
Problems reprioritized. Patient report given, questions answered & plan of care reviewed with SHARRI Novoa.
[2022-10-24] MEDS: docusate sod 100mg capsule PO SCH ×2 (08:00→19:17)
[2022-10-24] MEDS: vancomycin/NS 1 GM ADD-VANTAGE 250 ML IV SCH ×2 (08:15→19:15)
[2022-10-24] MEDS: LIDOcaine 5% patch TP SCH (08:17)
[2022-10-24] MEDS: ascorbic acid 500mg tablet PO SCH ×2 (08:17→19:17)
[2022-10-24] MEDS: ferrous sulfate 325mg tablet PO SCH ×3 (08:17→19:16)
[2022-10-24] MEDS: heparin, porcine 5000 units/ml vial SQ SCH ×2 (08:17→19:15)
[2022-10-24] MEDS: multivitamins, therapeutics tablet PO SCH (08:17)
[2022-10-24 09:33] LABS: BASOPHILS % (AUTO) 0.3 % (0-1); EOSINOPHILS % (AUTO) 0.4 % (0-6); HEMATOCRIT 24.7 % (42.0-52.0); HEMOGLOBIN 8.1 g/dl (14.0-17.9); LYMPHOCYTES # (AUTO) 0.7 X10'3 (1.1-4.8); LYMPHOCYTES % (AUTO) 19.5 % (21-51); MEAN CORPUSCULAR HEMOGLOBIN 27.3 PG (27.0-31.0); MEAN CORPUSCULAR VOLUME 82.9 FL (78-98); MEAN PLATELET VOLUME 6.7 FL (7.4-10.4); MONOCYTES # (AUTO) 0.2 X10'3 (0-0.9); MONOCYTES % (AUTO) 6.5 % (2-12); NEUTROPHILS # (AUTO) 2.7 X10'3 (1.8-7.7); NEUTROPHILS % (AUTO) 73.3 % (42-75); PLATELET COUNT 187 X10'3 (140-440); RED BLOOD COUNT 2.98 X10'6 (4.70-6.10); RED CELL DISTRIBUTION WIDTH 17.3 % (11.5-14.5); WHITE BLOOD COUNT 3.7 X10'3 (4.5-11.0)
[2022-10-24 09:46] LABS: ALANINE AMINOTRANSFERASE 95 U/L (12-78); ALBUMIN 1.1 G/DL (3.4-5.0); ALBUMIN/GLOBULIN RATIO 0.2 (1.1-1.5); ALKALINE PHOSPHATASE 71 IU/L (46-116); ANION GAP 4 (8-16); ASPARTATE AMINO TRANSFERASE 156 U/L (10-37); BILIRUBIN,TOTAL 0.4 MG/DL (0.1-1.0); BLOOD UREA NITROGEN 15 MG/DL (7-18); BUN/CREATININE RATIO 21.1 (5.4-32.0); CALCIUM 8.2 MG/DL (8.5-10.1); CHLORIDE 109 MMOL/L (99-107); CREATININE 0.71 MG/DL (0.60-1.10); GLUCOSE 90 MG/DL (70-104); POTASSIUM 3.2 MMOL/L (3.5-5.1); SODIUM 142 MMOL/L (135-145); TOTAL CARBON DIOXIDE 28.9 MMOL/L (24-32); TOTAL PROTEIN 6.8 G/DL (6.4-8.2); eGFR > 90 ML/MIN
[2022-10-24 11:00] VITALS: BP 151/79
--- NOTE | 2022-10-24 11:19 | NUR ---
I have reviewed and agree with all interventions, assessments performed and documented by RONALD TEE. Addendum: 10/24/22 at 1120 by Bright Morales RN PAGER ID: [phone] MESSAGE: [phone] DAPHNIE AMOS I PUT IN PROTOCOL K VIOLET PT HAD 3.2. BRIGHT
[2022-10-24] MEDS ORDERED: magnesium 2GM in 50ml NS 50 ML IV PRN (11:50)
[2022-10-24] MEDS ORDERED: magnesium 4gm in 100ml NS 100 ML IV PRN (11:50)
[2022-10-24] MEDS ORDERED: potassium Cl 20 mEq SR tablet PO PRN (11:50)
[2022-10-24] MEDS ORDERED: potassium Cl 40MEQ/1/2NS 520ml 520 ML IV PRN ×2 (11:50)
[2022-10-24] MEDS ORDERED: magnesium Cl slow-release 64mg tablet PO PRN (11:50)
[2022-10-24] MEDS: potassium Cl 20 mEq SR tablet PO PRN ×3 (12:10→21:56)
--- NOTE | 2022-10-24 13:51 | NUR ---
Problems reprioritized. Patient report given, questions answered & plan of care reviewed with NEYDA HARRELL.
--- NOTE | 2022-10-24 14:00 | NUR ---
Assumed care of pt. Pt awake and alert. Pt denied any SOB or discomfort at this time. Pt refused to eat lunch after encouragement to eat. Call light in reach.
--- NOTE | 2022-10-24 16:40 | NUR ---
Patient in room [facility] 341. I have received report from corona aldridge and had the opportunity to ask questions and assume patient care.
[2022-10-24 18:00] VITALS: BP 151/60
--- NOTE | 2022-10-24 18:05 | NUR ---
Problems reprioritized. Patient report given, questions answered & plan of care reviewed with SHARRI Novoa.
--- NOTE | 2022-10-24 18:06 | NUR ---
Problems reprioritized. Patient report given, questions answered & plan of care reviewed with brigida aldridge.
[2022-10-24] MEDS: sennosides 8.6mg tablet PO SCH (19:15)
[2022-10-24] MEDS: K and/or MAG REPLACEMENT MC SCH (19:20)
[2022-10-24 22:00] VITALS: BP 163/80
[2022-10-25] MEDS: sodium chloride 0.45% 1,000 ML IV SCH ×3 (03:05→16:07)
--- NOTE | 2022-10-25 06:06 | NUR ---
Problems reprioritized. Patient report given, questions answered & plan of care reviewed with SHARRI Echevarria.
[2022-10-25 07:03] VITALS: BP 155/83
[2022-10-25] MEDS: multivitamins, therapeutics tablet PO SCH (07:56)
[2022-10-25] MEDS: docusate sod 100mg capsule PO SCH ×2 (07:57→19:46)
[2022-10-25] MEDS: vancomycin/NS 1 GM ADD-VANTAGE 250 ML IV SCH ×2 (07:57→19:46)
[2022-10-25] MEDS: ascorbic acid 500mg tablet PO SCH ×2 (07:57→19:46)
[2022-10-25] MEDS: ferrous sulfate 325mg tablet PO SCH ×3 (07:57→19:46)
[2022-10-25] MEDS: LIDOcaine 5% patch TP SCH (07:57)
[2022-10-25] MEDS: heparin, porcine 5000 units/ml vial SQ SCH ×2 (07:59→19:48)
[2022-10-25] MEDS: K and/or MAG REPLACEMENT MC SCH ×2 (08:00→20:00)
[2022-10-25 08:33] LABS: MAGNESIUM 1.6 MG/DL (1.5-2.4)
[2022-10-25 11:05] LABS: POTASSIUM 3.3 MMOL/L (3.5-5.1)
[2022-10-25 11:34] VITALS: BP 134/75
[2022-10-25] MEDS: potassium Cl 20 mEq SR tablet PO PRN ×3 (12:23→19:50)
[2022-10-25 18:00] VITALS: BP 154/78
--- NOTE | 2022-10-25 18:13 | NUR ---
Problems reprioritized. Patient report given, questions answered & plan of care reviewed with SHARRI PARKER.
[2022-10-25] MEDS: sennosides 8.6mg tablet PO SCH (19:46)
[2022-10-25 22:00] VITALS: BP 149/77
[2022-10-25] MEDS: HYDROcodone/acetaminophen 10/325mg tab PO PRN (22:41)
[2022-10-26] MEDS: sodium chloride 0.45% 1,000 ML IV SCH ×2 (06:11→21:19)
--- NOTE | 2022-10-26 06:12 | NUR ---
Problems reprioritized. Patient report given, questions answered & plan of care reviewed with David HARRELL. Addendum: 10/26/22 at 0612 by Alice Mireles RN Amended: Links added.
--- NOTE | 2022-10-26 06:36 | NUR ---
Patient in room [facility] 341. I have received report from SHARRI Jenkins and had the opportunity to ask questions and assume patient care.
[2022-10-26 06:54] VITALS: BP 134/63
[2022-10-26] MEDS: heparin, porcine 5000 units/ml vial SQ SCH ×2 (07:47→19:27)
[2022-10-26 07:48] LABS: MAGNESIUM 1.6 MG/DL (1.5-2.4)
[2022-10-26] MEDS: docusate sod 100mg capsule PO SCH (07:48)
[2022-10-26] MEDS: ascorbic acid 500mg tablet PO SCH ×2 (07:48→19:26)
[2022-10-26] MEDS: ferrous sulfate 325mg tablet PO SCH ×3 (07:48→19:26)
[2022-10-26] MEDS: vancomycin/NS 1 GM ADD-VANTAGE 250 ML IV SCH ×2 (07:48→19:26)
[2022-10-26] MEDS: multivitamins, therapeutics tablet PO SCH (07:48)
[2022-10-26] MEDS: K and/or MAG REPLACEMENT MC SCH ×2 (08:00→19:27)
[2022-10-26] MEDS: LIDOcaine 5% patch TP SCH (08:09)
[2022-10-26 09:32] LABS: BASOPHILS % (AUTO) 0.6 % (0-1); EOSINOPHILS % (AUTO) 1.1 % (0-6); LYMPHOCYTES # (AUTO) 0.6 X10'3 (1.1-4.8); LYMPHOCYTES % (AUTO) 16.8 % (21-51); MEAN CORPUSCULAR HEMOGLOBIN 26.7 PG (27.0-31.0); MEAN CORPUSCULAR HGB CONC 31.6 g/dL (33.0-36.5); MEAN CORPUSCULAR VOLUME 84.3 FL (78-98); MEAN PLATELET VOLUME 7.2 FL (7.4-10.4); MONOCYTES # (AUTO) 0.2 X10'3 (0-0.9); MONOCYTES % (AUTO) 5.5 % (2-12); NEUTROPHILS # (AUTO) 2.9 X10'3 (1.8-7.7); PLATELET COUNT 172 X10'3 (140-440); RED BLOOD COUNT 2.59 X10'6 (4.70-6.10); RED CELL DISTRIBUTION WIDTH 17.4 % (11.5-14.5); WHITE BLOOD COUNT 3.8 X10'3 (4.5-11.0)
[2022-10-26 09:34] LABS: HEMATOCRIT 21.8 % (42.0-52.0); HEMOGLOBIN 6.9 g/dl (14.0-17.9)
--- NOTE | 2022-10-26 09:37 | NUR ---
PAGER ID: [phone] MESSAGE: 341- Jerrell Gupta- Critical 6.9.8- Wale [id number]
[2022-10-26] MEDS: potassium Cl 20 mEq SR tablet PO PRN ×3 (09:41→19:28)
[2022-10-26 09:42] LABS: ALANINE AMINOTRANSFERASE 115 U/L (12-78); ALBUMIN 1.1 G/DL (3.4-5.0); ALBUMIN/GLOBULIN RATIO 0.2 (1.1-1.5); ALKALINE PHOSPHATASE 67 IU/L (46-116); ANION GAP 6 (8-16); ASPARTATE AMINO TRANSFERASE 174 U/L (10-37); BILIRUBIN,TOTAL 0.5 MG/DL (0.1-1.0); BLOOD UREA NITROGEN 8 MG/DL (7-18); BUN/CREATININE RATIO 11.6 (5.4-32.0); CALCIUM 7.7 MG/DL (8.5-10.1); CHLORIDE 111 MMOL/L (99-107); CREATININE 0.69 MG/DL (0.60-1.10); GLUCOSE 84 MG/DL (70-104); POTASSIUM 3.3 MMOL/L (3.5-5.1); SODIUM 142 MMOL/L (135-145); TOTAL CARBON DIOXIDE 24.6 MMOL/L (24-32); TOTAL PROTEIN 6.7 G/DL (6.4-8.2); eGFR > 90 ML/MIN
[2022-10-26 11:11] VITALS: BP 132/65
[2022-10-26 11:35] LABS: TOTAL IRON BINDING CAPACITY 192 UG/DL (259-388)
[2022-10-26 11:46] LABS: % IRON SATURATION 78 % (11-46); IRON 149 UG/DL (53-167)
[2022-10-26 16:03] LABS: BASOPHILS % (AUTO) 0.4 % (0-1); EOSINOPHILS % (AUTO) 0.9 % (0-6); HEMATOCRIT 22.6 % (42.0-52.0); HEMOGLOBIN 7.5 g/dl (14.0-17.9); LYMPHOCYTES # (AUTO) 0.7 X10'3 (1.1-4.8); LYMPHOCYTES % (AUTO) 15.6 % (21-51); MEAN CORPUSCULAR HEMOGLOBIN 27.7 PG (27.0-31.0); MEAN CORPUSCULAR HGB CONC 33.1 g/dL (33.0-36.5); MEAN CORPUSCULAR VOLUME 83.6 FL (78-98); MEAN PLATELET VOLUME 6.4 FL (7.4-10.4); MONOCYTES # (AUTO) 0.2 X10'3 (0-0.9); NEUTROPHILS # (AUTO) 3.3 X10'3 (1.8-7.7); NEUTROPHILS % (AUTO) 78.1 % (42-75); PLATELET COUNT 189 X10'3 (140-440); WHITE BLOOD COUNT 4.2 X10'3 (4.5-11.0)
[2022-10-26 18:00] VITALS: BP 148/61
[2022-10-26 18:21] LABS: OCCULT BLOOD STOOL POSITIVE (Neg)
--- NOTE | 2022-10-26 18:34 | NUR ---
Patient in room [facility] 341. I have received report from SHARRI Jenkins and had the opportunity to ask questions and assume patient care.
[2022-10-26] MEDS: sennosides 8.6mg tablet PO SCH (19:26)
[2022-10-26] MEDS: HYDROcodone/acetaminophen 10/325mg tab PO PRN (19:26)
[2022-10-26 22:00] VITALS: BP 105/53
[2022-10-27 02:00] VITALS: BP 120/59
[2022-10-27 05:00] VITALS: BP 125/62
[2022-10-27] MEDS: HYDROcodone/acetaminophen 10/325mg tab PO PRN ×3 (05:54→20:28)
--- NOTE | 2022-10-27 06:10 | NUR ---
Problems reprioritized. Patient report given, questions answered & plan of care reviewed with Ashlee HARRELL. Addendum: 10/27/22 at 0611 by Alice Mireles RN Amended: Links added.
[2022-10-27 06:36] LABS: MEAN CORPUSCULAR HGB CONC 32.2 g/dL (33.0-36.5); MEAN CORPUSCULAR VOLUME 84.1 FL (78-98); MEAN PLATELET VOLUME 6.9 FL (7.4-10.4); PLATELET COUNT 184 X10'3 (140-440); RED BLOOD COUNT 2.53 X10'6 (4.70-6.10); RED CELL DISTRIBUTION WIDTH 17.6 % (11.5-14.5); WHITE BLOOD COUNT 3.8 X10'3 (4.5-11.0)
[2022-10-27 06:44] LABS: MAGNESIUM 1.7 MG/DL (1.5-2.4); POTASSIUM 3.6 MMOL/L (3.5-5.1)
[2022-10-27 06:45] LABS: HEMOGLOBIN 6.8 g/dl (14.0-17.9)
[2022-10-27 06:46] LABS: HEMATOCRIT 21.3 % (42.0-52.0)
[2022-10-27] MEDS: K and/or MAG REPLACEMENT MC SCH ×2 (08:00→20:00)
--- NOTE | 2022-10-27 08:04 | NUR ---
promotional table spacer PAGER ID: [phone] MESSAGE: [phone] Jerrell Hudson H/Mary 6.8.3 critical value we notify the dr. Rosado [phone]
[2022-10-27] MEDS: ascorbic acid 500mg tablet PO SCH ×2 (09:24→20:27)
[2022-10-27] MEDS: heparin, porcine 5000 units/ml vial SQ SCH ×2 (09:24→20:27)
[2022-10-27] MEDS: multivitamins, therapeutics tablet PO SCH (09:24)
[2022-10-27] MEDS: vancomycin/NS 1 GM ADD-VANTAGE 250 ML IV SCH ×2 (09:24→20:27)
[2022-10-27] MEDS: furosemide 40mg tablet PO SCH (09:25)
[2022-10-27] MEDS: ferrous sulfate 325mg tablet PO SCH ×3 (09:25→20:28)
[2022-10-27 10:00] VITALS: BP 109/55
[2022-10-27] MEDS: LIDOcaine 5% patch TP SCH (11:08)
--- NOTE | 2022-10-27 13:19 | NUR ---
Patient called, the hospital bed is not working and she will have to have it traded or fixed in the am and is hoping for an afternoon discharge.
--- NOTE | 2022-10-27 13:50 | NUR ---
Dr. Flores aware of wanting a call, number given to him.
[2022-10-27 18:00] VITALS: BP 114/60
--- NOTE | 2022-10-27 18:17 | NUR ---
Problems reprioritized. Patient report given, questions answered & plan of care reviewed with Wandy HARRELL.
[2022-10-27] MEDS: sennosides 8.6mg tablet PO SCH (20:28)
[2022-10-27 22:00] VITALS: BP 137/63
[2022-10-28] MEDS: HYDROcodone/acetaminophen 10/325mg tab PO PRN (04:39)
--- NOTE | 2022-10-28 06:34 | NUR ---
Problems reprioritized. Patient report given, questions answered & plan of care reviewed with oly Rosado.
[2022-10-28 07:00] VITALS: BP 131/58
[2022-10-28] MEDS: K and/or MAG REPLACEMENT MC SCH (08:01)
[2022-10-28] MEDS: vancomycin/NS 1 GM ADD-VANTAGE 250 ML IV SCH (09:35)
[2022-10-28] MEDS: heparin, porcine 5000 units/ml vial SQ SCH (09:35)
[2022-10-28] MEDS: multivitamins, therapeutics tablet PO SCH (09:35)
[2022-10-28] MEDS: ascorbic acid 500mg tablet PO SCH (09:36)
[2022-10-28] MEDS: ferrous sulfate 325mg tablet PO SCH ×2 (09:36→13:09)
[2022-10-28] MEDS: furosemide 40mg tablet PO SCH (09:36)
[2022-10-28] MEDS: LIDOcaine 5% patch TP SCH (09:36)
[2022-10-28] MEDS ORDERED: FURO-150 PO (10:45)
[2022-10-28] MEDS ORDERED: DEC4T PO (10:46)
[2022-10-28 11:00] VITALS: BP 100/53
[2022-10-28 13:13] VITALS: BP 141/75
[2022-10-28 13:30] VITALS: BP 136/68
[2022-10-28 14:37] VITALS: BP 143/73
--- NOTE | 2022-10-28 15:58 | NUR ---
WOC in for wound care, the patient is having a blood transfusion and leaving. the nurse stated do not go the room please, they had lost and IV and he was a difficult stick. Wound care not in today.
[2022-10-28 16:13] VITALS: BP 127/79
--- NOTE | 2022-10-28 17:21 | NUR ---
Called regarding discharge, explained new medications to her. She question why on each medication and I educated the best of my ability.
[2022-10-29] MEDS ORDERED: VANCOMYCIN LEVEL IV ONE (06:30)
== END 2022-10-28 17:14 | disposition home health service (06) | DRG 871 ==
LOC: ER 19:54 → ED HOLD 10-18 01:20 → UNDOADMIN 10-18 01:20 → ED HOLD 10-18 20:35 → EDBEDREQ 10-18 20:39 → SUR 3N 10-18 22:00 → ED HOLD 10-18 22:00
PROVIDERS: ADMIT Internal Medicine; ATTEND Internal Medicine
PROC: XW033E5 Introduction of Remdesivir Anti-infective into Peripheral Vein, Percutaneous Approach, New Technology Group 5 (ICD-10-PCS; principal; 2022-10-17)
PROC: 30233N1 Transfusion of Nonautologous Red Blood Cells into Peripheral Vein, Percutaneous Approach (ICD-10-PCS; 2022-10-19)
DX: A41.9 Sepsis, unspecified organism (principal); E43 Unspecified severe protein-calorie malnutrition; G93.41 Metabolic encephalopathy; U07.1 COVID-19; N39.0 Urinary tract infection, site not specified; C90.00 Multiple myeloma not having achieved remission; Z51.5 Encounter for palliative care; E83.52 Hypercalcemia; R74.01 Elevation of levels of liver transaminase levels; I95.9 Hypotension, unspecified; D64.9 Anemia, unspecified; E87.6 Hypokalemia; R09.81 Nasal congestion; B95.62 Methicillin resistant Staphylococcus aureus infection as the cause of diseases classified elsewhere; M54.9 Dorsalgia, unspecified; R09.02 Hypoxemia; Z78.9 Other specified health status; Z82.49 Family history of ischemic heart disease and other diseases of the circulatory system; Z85.46 Personal history of malignant neoplasm of prostate; Z88.0 Allergy status to penicillin; Z88.2 Allergy status to sulfonamides; Z68.21 Body mass index [BMI] 21.0-21.9, adult
CPT/HCPCS: 36415; 36430; 70450; 71045; 80053; 80202; 81001; 82272; 82784; 83540; 83550; 83605; 83735; 83880; 83970; 84100; 84132; 84153; 84154; 85007; 85025; 85027; 86334; 86885; 86900; 86901; 86920; 87040; 87077; 87081; 87088; 87186; 87635; 93005; 99285; A6212; A6213; A6449; C9803; G0378; J0131; J0696; J1100; J1644; J1940; J2430; J3370; J3475; J3480; J3490; J7030; J7040; J7050; J7120; P9016